=== PATIENT | female | born 1970 | race Two or more races ===

== ENCOUNTER 2016-03-19 22:54 | Emergency (ER) | payer SELFPAY ==
[2016-03-20] MEDS ORDERED: ACETAMINOPHEN 325 MG TABLET ONE (00:24)
[2016-03-20] MEDS ORDERED: KETOROLAC TROMETHAMINE 15 MG/ML VIAL ONE (00:24)
== END 2016-03-20 02:16 | disposition home or self-care (01) ==
LOC: EDBD 22:54 → ED 22:54
DX: K08.89 Other specified disorders of teeth and supporting structures (principal)
CPT/HCPCS: 99283 ×2; 96372; J1885; A9270